=== PATIENT | male | born 1995 | race Caucasian/White ===

== ENCOUNTER 2021-10-12 22:58 | Emergency (ER) | payer BC ==
[~2021-10-12] VITALS: Ht 185.4 cm; Wt 127.0 kg
[~2021-10-12 22:58] MED LIST: Norco 5-325 Ta1 EACH PO
[2021-10-13] MEDS ORDERED: IBU800 MG PO (00:20)
== END 2021-10-13 00:47 | disposition home or self-care (01) ==
LOC: ER 22:58
DX: S92.321A Displaced fracture of second metatarsal bone, right foot, initial encounter for closed fracture (principal); S92.331A Displaced fracture of third metatarsal bone, right foot, initial encounter for closed fracture; S92.341A Displaced fracture of fourth metatarsal bone, right foot, initial encounter for closed fracture; Y04.2XXA Assault by strike against or bumped into by another person, initial encounter; Y92.838 Other recreation area as the place of occurrence of the external cause
CPT/HCPCS: 29515; 73630; 99283-25